=== PATIENT | female | born 1975 | race African-American/Black ===

== ENCOUNTER 2016-10-15 08:34 | Inpatient (IN) ==
[2016-10-15 08:58] LABS: URINE SOURCE VOIDED
[2016-10-15 09:17] LABS: MANUAL DIFF NEEDED? NO
[2016-10-15 09:18] LABS: BASO% 0.2 % (0.0-0.8); HEMATOCRIT 36.6 % (37.0-47.0); HEMOGLOBIN 11.8 g/dL (12.0-16.0); IMM GRAN# 0.03 X1000 (0.0-0.04); IMM GRAN% 0.3 % (0.0-0.5); LYMPH# 1.17 X1000 (1.2-3.4); LYMPH% 9.8 % (20.5-51.1); MCH 24.8 PG (27-31); MCHC 32.2 g/dL (33-37); MCV 76.9 FL (81-99); MONO% 6.7 % (1.7-9.3); MPV 10.2 FL (7.4-10.4); PLT 358 X1000 (130-400); RBC 4.76 XMIL (4.2-5.4)
[2016-10-15 09:20] LABS: BILIRUBIN URINE NEGATIVE (NEGATIVE); BLOOD URINE 4+ (NEGATIVE); CLARITY CLEAR (CLEAR); COLOR YELLOW; GLUCOSE URINE NEGATIVE (NEGATIVE); LEUKOCYTES URINE TRACE (NEGATIVE); NITRITE URINE NEGATIVE (NEGATIVE); PROTEIN URINE TRACE mg/dL (NEGATIVE); UROBILINOGEN URINE NORMAL
[2016-10-15 09:23] LABS: URINE EPITHELIAL CELLS <10 /HPF (<10); URINE RBC 20-40 /HPF (<10)
[2016-10-15 09:24] LABS: URINE CULTURE PL NEEDED? YES
[2016-10-15 09:33] LABS: AGAP 13; ALBUMIN 3.8 g/dL (3.5-5.0); ALKALINE PHOSPHATASE 78 U/L (32-104); AMYLASE 58 U/L (20-200); BUN 8 mg/dL (8-22); CALCIUM 9.2 mg/dL (8.8-10.2); CHLORIDE 99 mmol/L (98-107); COSMO 267; GOT 14 U/L (10-30); GPT 11 U/L (10-36); LIPASE 17 U/L (13-60); SODIUM 134 mmol/L (136-145); TCO2 23 mmol/L (25-35); TOTAL PROTEIN 7.4 g/dL (6.3-8.3)
--- NOTE | 2016-10-15 09:58 | PROVIDER DOCUMENTATION ---
HPI-Abdominal Pain/GI Problem - General Chief Complaint: Abdominal Pain Stated Complaint: ABD PAIN Time Seen by Provider: 10/15/16 09:30 Source: patient, family (mother) Allergies/Adverse Reactions: Patient Allergies Allergy/AdvReac Type Severity Reaction Status Date / Time No Known Allergies Allergy Verified 10/15/16 08:44 Home Medications: Home Medication List Medication Instructions Recorded Confirmed Last Taken Type Hydrocodone/APAP 10 mg/325 mg 1 each PO Q4H PRN PRN #60 tablet 09/29/1610/15/16 08:00 Rx [[facility]-10] - History of Present Illness-ABD Nature of Presenting Problems: Pt is 41 y/o F presents to the ED with suprapubic pain. Pt states recently having a hysterectomy on Sep 27. Pt states no pain until last night. Pt states N but no V or D. Pt denies F. Abdominal Pain Onset Location: reports: suprapubic Pain Radiation: reports: no radiation Quality of Pain: reports: aching, cramping Severity in ED: reports: mild Onset/Duration: reports: last night Timing: reports: still present, intermittent Activities at Onset: reports: light activity Exposure to sick contacts?: No Modifying Factors: improves with: nothing Associated Symptoms: reports: nausea. denies: anxiety, arm pain, back/neck pain , chest pain, constipation, cough, diaphoresis, diarrhea, dizziness, EENT symptoms, fatigue, fever/chills, genitourinary problems, headaches, heartburn, joint pain, loss of appetite, malaise, muscle aches, sinus congestion/drainage, rash, seizure, shortness of breath, sensory/motor loss, pain with inspiration, swelling/mass in abdomen, syncope, vomiting, weakness, trouble walking Last BM: unsure Dark Stools Present?: reports: none noticed Rectal Bleeding: reports: none Rectal Pain: reports: none Emesis Description: reports: none Bruising or Bleeding Gums?: No Similar Symptoms Previously?: Yes Recently seen or treated by another doctor?: No Review of Systems - Adult - REVIEW OF SYSTEMS - ADULT Constitutional: denies: chills, fever Eyes: denies: blurred vision, double vision Ears, Nose, Mouth & Throat: denies: ear pain, nose pain, throat pain Cardiovascular: denies: chest pain, heart murmur, irregular heart rate Respiratory: denies: cough, shortness of breath, wheezing Gastrointestinal: reports: abdominal pain (suprapubic), nausea. denies: diarrhea, vomiting Genitourinary: denies: dysuria, hematuria Musculoskeletal: denies: bone pain, joint pain, neck pain Integumentary: denies: hives, itching Neurological: denies: dizziness/vertigo, headache/migraines Psychiatric: reports: no symptoms reported Endocrine: reports: no symptoms reported Hematologic/Lymphatic: reports: no symptoms reported Allergic/Immunologic: reports: no symptoms reported All Other Systems: Reviewed and Negative Past History - Adult - PAST MEDICAL HISTORY-ADULT Review of Records: reports: Nursing Assessment Review, Medications Reviewed, Social history reviewed & non-contributory. Major Childhood Illnesses: reports: denies history Cardiovascular: reports: denies history Respiratory: reports: denies history Gastrointestinal: reports: denies history Obstetrical/Gynecological: reports: denies history Genitourinary: reports: denies history Musculoskeletal: reports: denies history Neurological: reports: denies history Endocrine/Immune: reports: denies history Other Conditions: reports: denies history - PRIOR SURGERIES/PROCEDURES Surgical/Procedure History: reports: hysterectomy, - IMMUNIZATION STATUS Childhood Immunizations: See Nurse Assessment Flu Vaccine: See Nurse Assessment - FAMILY HISTORY Family History: reviewed, not pertinent - SOCIAL HISTORY Smoking: denies Substance Use: denies Living Situation: family Physical Exam-General - PHYSICAL EXAM-ADULT Initial Vital Signs Reviewed: Yes - CONSTITUTIONAL General Appearance: appears well, alert, mild distress - EYES Eyes: PERRL/EOMI, pink conjunctivae, fundi clear, no AV nicking - HEAD, EARS, NOSE, MOUTH & THROAT HENMT: normocephalic/atraumatic, moist mucous membranes, normal ENT inspection, TMs normal, pharynx normal - NECK Neck: non-tender, full range of motion, supple, normal inspection - RESPIRATORY Respiratory: chest non-tender, lungs clear, normal breath sounds, no pleuratic chest pain, no respiratory distress, no accessory muscle use - CARDIOVASCULAR Cardiovascular: normal peripheral pulses, regular rate, rhythm, no edema, no gallop, no JVD, no murmur - GASTROINTESTINAL (ABDOMEN) Abdominal Exam: normal bowel sounds, soft, no organomegaly, no pulsatile mass, tenderness (suprapubic), other (well healed surgical scar). negative: distended , guarding, rigid, rebound - LYMPHATIC Lymphatic: no adenopathy - MUSCULOSKELETAL Back Exam: normal inspection, no CVA tenderness, no vertebral tenderness Extremity: normal range of motion, non-tender, normal gait, normal inspection, no pedal edema, no calf tenderness, normal capillary refill, pelvis stable - SKIN Integumentary: normal color, normal turgor, warm/dry - NEUROLOGIC Neurologic: security advisor II-XII nml as tested, grossly normal, no motor/sensory deficits - PSYCHIATRIC Psych/Mental Status: normal mood/affect, normal thought content, normal thought process, oriented x 3 Progress - PLAN OF CARE/RESULTS Progress/Plan/Lab Results: Laboratory Tests 10/15/16 10/15/16 10/15/16 08:48 09:10 09:10 WBC 12.00 H RBC 4.76 Hgb 11.8 L Hct 36.6 L MCV 76.9 L MCH 24.8 L MCHC 32.2 L RDW Std Deviation 20.4 H Plt Count 358 MPV 10.2 Immature Gran % (Auto) 0.3 Neut % (Auto) 83.0 H Lymph % (Auto) 9.8 L [place] % (Auto) 6.7 Eos % (Auto) 0.0 Baso % (Auto) 0.2 Immature Gran # (Auto) 0.03 Neut # (Auto) 9.98 H Lymph # (Auto) 1.17 L [place] # (Auto) 0.80 H Eos # (Auto) 0.00 Baso # (Auto) 0.02 Sodium 134 L Potassium 4.0 Chloride 99 Carbon Dioxide 23 L Anion Gap 13 BUN 8 Creatinine 0.7 Estimated GFR/1.73 m2 > 60 BUN/Creatinine Ratio 11 Glucose 110 H Calculated Osmolality 267 Calcium 9.2 Total Bilirubin 0.30 AST 14 ALT 11 Alkaline Phosphatase 78 Total Protein 7.4 Albumin 3.8 Globulin 4.0 Albumin/Globulin Ratio 1.0 Amylase 58 Lipase 17 Urine Source VOIDED Urine Color YELLOW Urine Clarity CLEAR Urine pH 5.0 Ur Specific [place] 1.020 Urine Protein TRACE A Urine Ketones NEGATIVE Urine Blood 4+ Urine Nitrite NEGATIVE Urine Bilirubin NEGATIVE Urine Urobilinogen NORMAL Urine Microscopic RBC 20-40 A Urine WBC TRACE A Urine Microscopic WBC 10-20 A Ur Epithelial Cells <10 Urine Bacteria 1+ Urine Glucose NEGATIVE Orders Category Date Time Status Saline Loc DIRECTED Care 10/15/16 09:02 Active NPO Diet 10/15/16 09:02 Active AMYLASE [CHEM] Stat Lab 10/15/16 09:10 Completed CBC WITH ELECTRONIC DIFF [HEME] Stat Lab 10/15/16 09:10 Completed COMPREHENSIVE METABOLIC PANEL [CHEM] Stat Lab 10/15/16 09:10 Completed LIPASE [CHEM] Stat Lab 10/15/16 09:10 Completed UA [URINALYSIS PL W/POSS RFLX CULT] [URINALYSIS] Stat Lab 10/15/16 08:[address] W/POSS RFLX CULT [URINALYSIS] Stat Lab 10/15/16 09:02 Ordered URINE CULTURE [RM] Routine Lab 10/15/16 09:24 Ordered Vital Signs - 24 hr 10/15/16 08:40 Temperature 98.1 F Pulse Rate 94 H Respiratory 18 Rate Blood Pressure 137/84 O2 Sat by Pulse 97 Oximetry - CT/MRI 1 CT Study: Abdomen, Pelvis Impression: Abnormal CT Results: pelvic abscesses - CONSULTS/PCP/HOSPITALIST Notification #1 *Consult/PCP/Hospitalist*: Dr. Nieto Time Discussed: 10:37 (Dr. Nieto states order an abdomen/pelvis with IV contrast) Reason/Comments: Dr. Bullard consulted with Dr. Nieto about Pt Consult Disposition: other #2 Consult: Dr. Nieto Time Discussed: 13:41 (Dr. Nieto accepted admit ) Reason/Comments: Dr. Bullard consulted with Dr. Nieto about admit Pt Consult Disposition: Admit Departure - Departure Time of Disposition Order: 13:42 DIAGNOSIS: Pelvic abscess in female Disposition: ADMITTED INPATIENT 09 Certified Medical Emergency: Emergent Condition: Stable Additional Instructions: ED Follow Up Instructions: You have been treated by a care provider in the Emergency Department. These instructions are being provided to you so you can have an understanding of how to care for yourself upon discharge. Upon discharge from the Emergency Department, you are responsible for making arrangements for follow-up care by a physician of your choice. Take all prescribed medications as directed. Return to the Emergency Department immediately for any new or worsening symptoms. You may call the Physician Referral phone number at [phone] to obtain a list of Physicians who are taking new patients. Referrals: None,PCP [Primary Care Provider] - Attestation - Scribe Verification/Attestation Scribe:: Inocencia Leal Acting as Scribe for:: Mik Bullard Scribe documention review:: This chart was documented by a scribe and accurately reflects the service the provider performed and the decisions made by the provider.
[2016-10-15] MEDS ORDERED: TYLENOL PO PRN (13:41)
[2016-10-15] MEDS ORDERED: VANCOMYCIN IV PER PHARMACY MISC SCH (13:45)
[2016-10-15] MEDS: ZOSYN 3.375 GM/NS 50 ML IV SCH ×2 (14:18→21:07)
[2016-10-15] MEDS: NORCO-10 PO PRN ×3 (15:16→22:25)
[2016-10-15] MEDS: NS 1,000 ML IV SCH (15:18)
[2016-10-15] MEDS ORDERED: AMBIEN PO PRN (15:29)
[2016-10-15] MEDS ORDERED: DEMEROL IM PRN (15:30)
[2016-10-15] MEDS ORDERED: ZOFRAN IV PRN (15:31)
[2016-10-15] MEDS ORDERED: PHENERGAN IM PRN (15:31)
[2016-10-15] MEDS: VANCOMYCIN 2,000 MG in NS 500 ML IV SCH (16:01)
--- NOTE | 2016-10-15 16:30 | Diag Imaging Result Document ---
PROCEDURE NAME: ABDOMEN/PELVIS W/CONTRAST - 10/15/2016 CT OF THE ABDOMEN WITH INTRAVENOUS AND ORAL CONTRAST: FINDINGS: The adrenal glands, spleen and pancreas are within normal limits. The liver is unremarkable. There are some folds in the gallbladder. The kidneys are without evidence of hydronephrosis or mass. There are postsurgical changes in the anterior abnormal wall around the umbilicus presumably due to the recent hysterectomy. There is no evidence of bowel obstruction. No significant adenopathy is present. The kidneys are without evidence of hydronephrosis or mass. CT OF THE PELVIS WITH INTRAVENOUS AND ORAL CONTRAST: FINDINGS: There is an abnormal fluid collection present adjacent to the distal sigmoid colon and anterior to the rectum measuring 8.6 x 4.5 cm. There is an adjacent fluid collection which contains some gas measuring 4.8 x 2.7 cm. The urinary bladder is not distended. There is no evidence of free fluid. IMPRESSION: Pelvic abscesses presumably following recent hysterectomy.
[2016-10-15] MEDS: MOTRIN PO PRN (17:38)
--- NOTE | 2016-10-15 18:53 | HISTORY AND PHYSICAL ---
ADMITTING PHYSICIAN: Milan Nieto MD ADMITTING DIAGNOSIS: Postoperative abscess. SUMMARY: Tigist Redd is a 41-year-old, 1, para 1, who was admitted to the hospital by Dr. Carter on 09/27. She had an enlarged uterus from fibroids and menorrhagia. After seeing the risks, benefits, possible complications, reasonable expectations of surgery, she was taken to the operating room and underwent a total abdominal hysterectomy. He did not remove the ovaries. He did remove the fallopian tubes. Findings were an enlarged uterus. There were no intraoperative complications and her final pathology report showed multiple leiomyomata. There was no evidence of malignancy. Postoperatively, she did very well. She has remained afebrile and all vital signs were stable. She was discharged with a postoperative hematocrit of 9.7. She was seen in the office by Dr. Carter the week after surgery and was doing well. She states that she began having pain last night. It got to the that point where she presented to the emergency room. There, she was noted to have a hemoglobin of 11.8, hematocrit of 36.6, and a white count of 12. An ultrasound was performed which showed 2 abscesses versus loculations around the sigmoid colon. One was 9 cm, the other one 4.6 cm. She is being admitted to the hospital for further evaluation. PAST MEDICAL HISTORY: No chronic medical or surgical illnesses. She has had a section, along with hysterectomy. ALLERGIES: None. CURRENT MEDICATIONS: Pain medications. PHYSICAL EXAMINATION: GENERAL: Shows an obese female. VITAL SIGNS: Stable, she is afebrile. CARDIOVASCULAR: Regular rate and rhythm without murmurs, rubs, or gallops. PULMONARY: Clear. BREASTS: No masses. Incision is healing well. : On pelvic examination, there is a fullness in the cul-de-sac. EXTREMITIES: No clubbing, edema or cyanosis. IMPRESSION: Pelvic abscesses, status surgery. PLAN: We will begin antibiotics. We will check a complete blood count in the morning. We may have to consider going to the operating room, and opening up the vaginal cuff to drain these collections. We will discuss this with Dr. Carter tomorrow. MTDD
[2016-10-15] MEDS ORDERED: ZOSYN 3.375 GM/NS 50 ML ONE (21:01)
[2016-10-16] MEDS: MOTRIN PO PRN ×3 (02:25→20:04)
[2016-10-16] MEDS: NORCO-10 PO PRN ×5 (02:26→21:25)
[2016-10-16] MEDS: NS 1,000 ML IV SCH ×2 (02:26→13:24)
[2016-10-16] MEDS: ZOSYN 3.375 GM/NS 50 ML IV SCH ×3 (03:53→20:05)
[2016-10-16] MEDS: VANCOMYCIN 2,000 MG in NS 500 ML IV SCH ×2 (04:45→16:53)
[2016-10-16 06:04] LABS: MANUAL DIFF NEEDED? NO
[2016-10-16 06:19] LABS: BASO% 0.2 % (0.0-0.8); EOS# 0.04 X1000 (0.0-0.7); EOS% 0.3 % (0.0-10.0); HEMATOCRIT 31.6 % (37.0-47.0); HEMOGLOBIN 10.1 g/dL (12.0-16.0); IMM GRAN# 0.03 X1000 (0.0-0.04); IMM GRAN% 0.2 % (0.0-0.5); LYMPH# 1.75 X1000 (1.2-3.4); MCH 24.9 PG (27-31); MCV 77.8 FL (81-99); MONO# 1.25 X1000 (0.11-0.59); MPV 11.1 FL (7.4-10.4); NEUT% 75.3 % (42.2-75.2); PLT 300 X1000 (130-400); RBC 4.06 XMIL (4.2-5.4)
[2016-10-17] MEDS: NS 1,000 ML IV SCH ×2 (00:02→19:42)
[2016-10-17] MEDS: ZOSYN 3.375 GM/NS 50 ML IV SCH ×4 (02:10→19:43)
[2016-10-17] MEDS: VANCOMYCIN 2,000 MG in NS 500 ML IV SCH ×2 (04:06→16:04)
[2016-10-17] MEDS: MOTRIN PO PRN ×2 (09:11→18:50)
--- NOTE | 2016-10-17 10:22 | PROGRESS NOTE ---
DATE: 10/17/2016 SUBJECTIVE: She is hospital day three, antibiotic day 3 of vancomycin and Zosyn. OBJECTIVE: Vital Signs: Temperature is 97.8 degrees, blood pressure 140/76, pulse 86. General: She is alert and cooperative. She does not appear in any acute distress. She states still some lower abdominal pain with some dysuria. She is tolerating p.o. She is ambulating and she is voiding. Abdomen: Soft. She is tender suprapubically. Still has a slight vaginal discharge. LABORATORY VALUES: No new laboratory values to report. ASSESSMENT: Postoperative pelvic abscess. PLAN: Continue antibiotics for another 24 hours. Will re-examine tomorrow and obtain another CBC. If there is evidence of abscess pointing into the vaginal area, will bring back to the OR to I and D. No evidence of abscess pointing into the vagina. Will continue antibiotics for 1 more day and probable discharge on p.o. antibiotics. Discharge as long as patient remains afebrile with a good white count.
[2016-10-17] MEDS: NORCO-10 PO PRN ×2 (10:38→16:05)
[2016-10-18] MEDS: ZOSYN 3.375 GM/NS 50 ML IV SCH ×4 (02:00→19:57)
[2016-10-18] MEDS: VANCOMYCIN 2,000 MG in NS 500 ML IV SCH ×2 (03:56→16:26)
[2016-10-18] MEDS: NS 1,000 ML IV SCH ×2 (04:00→14:56)
[2016-10-18] MEDS: LOMOTIL PO PRN ×2 (09:26→13:17)
[2016-10-18] MEDS: NORCO-10 PO PRN (11:30)
[2016-10-18] MEDS: MOTRIN PO PRN (14:03)
[2016-10-19] MEDS: ZOSYN 3.375 GM/NS 50 ML IV SCH ×3 (01:17→08:03)
[2016-10-19] MEDS: NS 1,000 ML IV SCH (01:17)
[2016-10-19] MEDS: VANCOMYCIN 2,000 MG in NS 500 ML IV SCH (03:58)
[2016-10-19 05:55] LABS: MANUAL DIFF NEEDED? NO
[2016-10-19 06:01] LABS: BASO% 0.3 % (0.0-0.8); EOS# 0.04 X1000 (0.0-0.7); EOS% 0.5 % (0.0-10.0); HEMATOCRIT 31.1 % (37.0-47.0); IMM GRAN# 0.01 X1000 (0.0-0.04); IMM GRAN% 0.1 % (0.0-0.5); LYMPH# 2.18 X1000 (1.2-3.4); MCHC 32.2 g/dL (33-37); MCV 77.8 FL (81-99); MONO# 0.72 X1000 (0.11-0.59); MONO% 9.6 % (1.7-9.3); MPV 10.8 FL (7.4-10.4); NEUT% 60.5 % (42.2-75.2); PLT 310 X1000 (130-400)
[2016-10-19] MEDS ORDERED: VERSED ONE (06:16)
[2016-10-19] MEDS ORDERED: FENTANYL ONE (06:16)
[2016-10-19] MEDS ORDERED: EPHEDRINE ONE (06:17)
[2016-10-19] MEDS ORDERED: DIPRIVAN 1% ONE (06:17)
[2016-10-19] MEDS ORDERED: PEPCID ONE (06:41)
[2016-10-19] MEDS ORDERED: METROGEL-VAGINAL 0.75% GEL ONE (10:14)
[2016-10-19] MEDS ORDERED: PHENERGAN IM PRN (10:37)
[2016-10-19] MEDS ORDERED: AMBIEN PO PRN (10:37)
[2016-10-19] MEDS ORDERED: NORCO-5 PO PRN (10:37)
[2016-10-19] MEDS ORDERED: DEMEROL IM PRN (10:37)
[2016-10-19] MEDS ORDERED: MORPHINE ONE ×2 (10:41→10:46)
[2016-10-19] MEDS ORDERED: PHENERGAN ONE (11:01)
--- NOTE | 2016-10-19 11:43 | OPERATIVE NOTE ---
PROCEDURE DATE: 10/19/2016 DATE OF OPERATION: 10/19/2016. PREOPERATIVE DIAGNOSIS: Pelvic abscess. POSTOPERATIVE DIAGNOSIS: Pelvic abscess. PROCEDURE: Incision and drainage with placement of a Malecot [place] 26 drain. ESTIMATED BLOOD LOSS: 30 mL. COMPLICATIONS: None. PATHOLOGY: None. ANESTHESIA: General endotracheal with Dr. Ramos. SURGEON: Dr. Milan Carter. INDICATIONS FOR PROCEDURE: Please refer to Ms. Redd's H and P and progress notes. Ms. Redd underwent abdominal hysterectomy for an enlarged fibroid uterus 2-1/2 weeks ago; she was admitted on Sunday 10/15 with pelvic abscess. She received IV antibiotics and initially appeared to be getting better. However, pelvic exam yesterday revealed mass pointing to the vagina which was very tender, so decision was made to proceed with drainage. DESCRIPTION OF PROCEDURE IN DETAIL: She was appropriately consented. She was brought to the operating room, placed under general endotracheal anesthesia, prepped and draped in a dorsal lithotomy position. A weighted speculum was placed. The pointing aspect in the posterior vagina was identified, and the vagina was cut with a #15 blade, accessing abscess. Then, the Malecot drain was placed. It started draining a milky white substance. It was not sewn into place. The vagina was packed with Kerlix and Metrogel. At that point, the procedure was completed. She was taken down from dorsal lithotomy, awakened, and taken to the recovery room in stable condition.
[2016-10-19] MEDS: TORADOL IV SCH ×2 (16:36→22:31)
[2016-10-19] MEDS: PERIDEX MT SCH (20:56)
[2016-10-20] MEDS ORDERED: SODIUM CHLORIDE 0.9% 10 ML ONE (04:34)
[2016-10-20] MEDS: TORADOL IV SCH ×2 (04:37→10:23)
[2016-10-20 06:10] LABS: MANUAL DIFF NEEDED? NO
[2016-10-20 06:39] LABS: BASO% 0.2 % (0.0-0.8); EOS# 0.01 X1000 (0.0-0.7); EOS% 0.2 % (0.0-10.0); HEMATOCRIT 31.2 % (37.0-47.0); IMM GRAN# 0.01 X1000 (0.0-0.04); IMM GRAN% 0.2 % (0.0-0.5); LYMPH# 2.41 X1000 (1.2-3.4); LYMPH% 36.7 % (20.5-51.1); MCH 25.2 PG (27-31); MCHC 32.1 g/dL (33-37); MCV 78.6 FL (81-99); MONO# 0.64 X1000 (0.11-0.59); MONO% 9.7 % (1.7-9.3); MPV 10.7 FL (7.4-10.4); PLT 332 X1000 (130-400); RBC 3.97 XMIL (4.2-5.4)
[2016-10-20] MEDS ORDERED: ZOFRAN ONE (07:00)
[2016-10-20] MEDS ORDERED: DECADRON ONE (07:00)
[2016-10-20] MEDS ORDERED: XYLOCAINE-MPF 2% ONE (07:00)
[2016-10-20 07:52] VITALS: BP 143/66
[2016-10-20] MEDS: PERIDEX MT SCH (08:40)
--- NOTE | 2016-10-20 12:36 | DISCHARGE SUMMARY ---
ADMISSION DATE: 10/15/2016 DISCHARGE DATE: 10/20/2016 ADMITTING DIAGNOSIS: Pelvic abscess. DISCHARGE DIAGNOSIS: Pelvic abscess. PROCEDURES PERFORMED: Incision and drainage of pelvic abscess. CONDITION: Stable. DIET: As tolerated. ACTIVITY: Routine postvaginal instructions. No sex, no tampons, no douches, no tub baths. MEDICATIONS: [place]. No antibiotics at this point. HOSPITAL COURSE: Please refer to Ms. Redd's H and P and operative note. She received 3 days of IV antibiotics with no improvement in the pain. On hospital day 4, incision and drainage was done, and a Malecot drain was left. This drained throughout the day of surgery, but overnight and this morning is not draining, so it was removed. Physical exam was much improved. We will discharge her to home.
== END 2016-10-20 12:40 | disposition home or self-care (01) | DRG 857 ==
LOC: P.ED 08:34 → P.WC 08:35
PROVIDERS: ADMIT Obstetrics & Gynecology; ATTEND Obstetrics & Gynecology
PROC: 0U9G70Z Drainage of Vagina with Drainage Device, Via Natural or Artificial Opening (ICD-10-PCS; principal; 2016-10-19 09:36)
DX: T81.4XXA Infection following a procedure, initial encounter (principal); Z68.42 Body mass index [BMI] 45.0-49.9, adult; N73.9 Female pelvic inflammatory disease, unspecified; E66.9 Obesity, unspecified
CPT/HCPCS: 36415; 74177; 80053; 80202; 81001; 82150; 83690; 85025; 87040; 87088; 94761; 94799; J1100; J1885; J2250; J2270; J2405; J2543; J2550; J3010; J3370; J7030; J7040